=== PATIENT | male | born 1950 | race Caucasian/White ===

== ENCOUNTER 2024-04-17 12:21 | Emergency (ER) | payer MEDICARE, OTHER, SELFPAY ==
[2024-04-17 12:27] VITALS: BP 118/63
[2024-04-17 13:08] LABS: % Basophils 0.6 % (0-2); % Eosinophils 0.8 % (0-6); % Immature Granulocytes 0.1 % (0-0.5); % Lymphocytes 11.2 % (20.5-51.1); % Monocytes 6.3 % (1.7-9.3); Absolute Basophils 0.1 10^3/uL (0-0.2); Absolute Eosinophils 0.1 10^3/uL (0-0.7); Absolute Monocytes 0.5 10^3/uL (0.1-0.6); Absolute Neutrophils 6.9 10^3/uL (1.4-6.5); Hematocrit 45.7 % (39.0-52.0); Hemoglobin 15.6 g/dL (13.0-18.0); Mean Corp Hgb Conc. 34.1 g/dL (33.0-37.0); Mean Corpuscular Hgb 31.3 pg (27.0-31.0); Mean Corpuscular Volume 91.8 fL (80.0-94.0); Nucleated Red Blood Cells % 0 % (-); Platelet Count 193 10^3/uL (130-400); Red Blood Cell Count 4.98 10^6/uL (4.70-6.10); Red Cell Dist. Width 14.9 % (11.5-14.5); White Blood Cell Count 8.5 10^3/uL (4.8-10.8)
[2024-04-17 13:16] LABS: ALT (SGPT) 27 U/L (0-50); AST (SGOT) 27 U/L (17-59); Alkaline Phosphatase 101 U/L (38-126); Blood Urea Nitrogen 22 mg/dl (9-20); Calcium 9.5 mg/dl (8.4-10.2); Carbon Dioxide 28 mmol/L (22-30); Chloride 99 mmol/L (98-107); Glucose 112 mg/dl (70-99); Potassium 4.3 mmol/L (3.5-5.1); Sodium 138 mmol/L (135-145); Total Protein 7.7 g/dl (6.3-8.2); eGFR 49.47
--- NOTE | 2024-04-17 14:18 | ED.GENMED ---
History of Present Illness
<Rama Holley PA-C - Last Filed: 04/17/24 21:40>
General
Chief Complaint: Abdominal Pain
Source: patient
Exam Limitations: none
Time Seen by Provider: 04/17/24 13:58
Nursing documentation reviewed up to this point in time: agreed with
History of Present Illness
History of Present Illness:
43-year-old male with past medical history of CHF, hyperlipidemia, inguinal hernias, presents emergency department today with concerns of reducible umbilical hernia. Patient reports that the pain started last night. He states that he started
having noticing this hernia a few months ago and he was trying to get into be assessed by a general surgeon. He states that the past 2 days, he noticed that the hernia would not reduce. He denies any fevers or chills, denies any nausea or
vomiting. He tried to reduce it himself and could not get it back in. He does take Eliquis and his last dose was this morning around 4 AM. His last meal was last night.
Review of Systems
<Rama Holley PA-C - Last Filed: 04/17/24 21:40>
Review of Systems
All Other Systems: ROS reviewed and negative except as documented in HPI and ROS
Phy Exam
<Rama Holley PA-C - Last Filed: 04/17/24 21:40>
Physical Exam
Physical Exam:
General: Patient is well appearing and in no acute distress; non-toxic
Skin: Warm and dry, no rashes or lesions
Head: Normocephalic, atraumatic
Eyes: Sclera non-icteric. EOMs intact.
Cardiac: Regular rate
Peripheral Vascular: No lower extremity swelling or edema
Pulm: Normal respiratory effort
Abdomen: Abdominal tenderness to palpation noted diffusely, tender umbilical hernia noted, irreducible by me, reduced by Dr. Weinberg
Neuro: CN II-XII intact, no focal neurologic deficits.
Psychiatric: Appropriate mood and affect.
Course
<Rama Holley PA-C - Last Filed: 04/17/24 21:40>
Orders/Labs/Results
Orders:
Orders
04/17/24 12:43
Complete Blood Count/With Diff Urgent
Comprehensive Metabolic Panel Urgent
Abnormal Lab Results
04/17/24
12:43
MCH 31.3 H pg
(27.0-31.0)
RDW 14.9 H %
(11.5-14.5)
Absolute Neuts (auto) 6.9 H 10^3/uL
(1.4-6.5)
Absolute Lymphs (auto) 1.0 L 10^3/uL
(1.2-3.4)
Neutrophils % 81.0 H %
(42.2-75.2)
Lymphocytes % 11.2 L %
(20.5-51.1)
BUN 22 H mg/dl
(9-20)
Creatinine 1.5 H mg/dL
(0.7-1.3)
Glucose 112 H mg/dl
(70-99)
04/17/24 12:43
04/17/24 12:43
Vital Signs
Initial and Last Documented VS:
Initial Vital Signs
Temp Pulse Resp BP Pulse Ox
97.5 F 54 16 118/63 97
04/17/24 12:27 04/17/24 12:27 04/17/24 12:27 04/17/24 12:27 04/17/24 12:27
Last Documented Vital Signs
Temp Pulse Resp BP Pulse Ox
97.5 F 54 16 118/63 97
04/17/24 12:27 04/17/24 12:27 04/17/24 12:27 04/17/24 12:27 04/17/24 12:27
<Erich Weinberg DO - Last Filed: 04/17/24 14:33>
Orders/Labs/Results
Orders:
Orders
04/17/24 12:43
Complete Blood Count/With Diff Urgent
Comprehensive Metabolic Panel Urgent
Abnormal Lab Results
04/17/24
12:43
MCH 31.3 H pg
(27.0-31.0)
RDW 14.9 H %
(11.5-14.5)
Absolute Neuts (auto) 6.9 H 10^3/uL
(1.4-6.5)
Absolute Lymphs (auto) 1.0 L 10^3/uL
(1.2-3.4)
Neutrophils % 81.0 H %
(42.2-75.2)
Lymphocytes % 11.2 L %
(20.5-51.1)
BUN 22 H mg/dl
(9-20)
Creatinine 1.5 H mg/dL
(0.7-1.3)
Glucose 112 H mg/dl
(70-99)
04/17/24 12:43
04/17/24 12:43
Vital Signs
Initial and Last Documented VS:
Initial Vital Signs
Temp Pulse Resp BP Pulse Ox
97.5 F 54 16 118/63 97
04/17/24 12:27 04/17/24 12:27 04/17/24 12:27 04/17/24 12:27 04/17/24 12:27
Last Documented Vital Signs
Temp Pulse Resp BP Pulse Ox
97.5 F 54 16 118/63 97
04/17/24 12:27 04/17/24 12:27 04/17/24 12:27 04/17/24 12:27 04/17/24 12:27
<Rama Holley PA-C - Last Filed: 04/17/24 21:40>
MDM/Problems Addressed
Differential Diagnosis Includes:
incarcerated hernia, umbilical surgical hernia, IBS, abdominal wall strai
MDM/Problems Addressed:
73-year-old male with a past medical history of umbilical hernia presents emergency department today with concerns of abdominal pain. Patient reports that his umbilical hernia will not reduce. On physical exam, he is well-appearing no acute
distress he is afebrile he does have a umbilical hernia. I did attempt to reduce this myself. I did notify my attending was able to successfully reduce the hernia. Patient was observed emergency department for some time I did have him ambulate
around the room and during he did go back in and out on its own and is no longer stuck. C BC unremarkable. CMP reveals slightly elevated creatinine no prior to compare. Patient stable for discharge. Stressed follow-up with general surgery.
Chronic conditions affecting care:
Cad, hlp, sleep apnea
<Rama Holley PA-C - Last Filed: 04/17/24 21:40>
*Pulse Oximetry
Patient hypoxic: no
*Critical Care Note
Total Time (30-74mins, 75-104mins- exclusive of procedures): Not Applicable
Data Reviewed
Review of Other/Old Records Reveals: Records (no previous ER physician documentation to review ) and Discharge Summary (no discharge summaries to review )
Source: patient and records
<Rama Holley PA-C - Last Filed: 04/17/24 21:40>
Patient Management
Escalation/DeEscalation of care consider admission/obs:
case reviewed with my attending
admit not indicated
patient stable for discharge
ED Attending Note
<Rama Holley PA-C - Last Filed: 04/17/24 21:40>
-
Portions of this chart may have been created with voice recognition software.� Occasional wrong word or��sound alike� substitutions may have occurred due to the inherent limitations of voice recognition software.
<Erich Weinberg, DO - Last Filed: 04/17/24 14:33>
ED Attending Note
Patient seen and examined by attending physician: Yes
I performed the substantive portion of visit, reviewed & personally made and approve the management plan that is documented in note by myself or CHELSEA.: Yes
Discharge Plan
Departure
Patient Disposition: Home (Routine Discharge)
Date of Disposition: 04/17/24
Time of Disposition: 15:18
Patient with high blood pressure during this ER visit?: No
Condition: Good
Discharge Problem:
Umbilical hernia
Instructions: Abdominal wall hernias, Abdominal Pain
Referrals:
Jose Antonio Liz MD [Family Provider] -
Chad Khan MD [Active] - Call in 1-3 days for appt
Activity Restrictions/Additional Instructions:
Please call Dr. Khan's office first thing Friday morning to schedule an appointment.
PLEASE RETURN TO THE ER SHOULD YOU DEVELOP FEVERS OR CHILLS, NAUSEA AND VOMITING, CHEST PAIN, SHORTNESS OF BREATH, IRREDUCIBLE HERNIA, OR ANY OTHER SIGNS OR SYMPTOMS CONCERNING TO YOU.
Interventions
Interventions:
*Risk Screen - Suicide Last Done: 04/17/24 12:27
*General Assessment Last Done: 04/17/24 12:27
*Neglect/Abuse Screening Last Done: 04/17/24 12:27
*ED COVID-19 Vaccine History Last Done: 04/17/24 12:27
*Nursing Disposition Last Done: 04/17/24 15:42
[facility] Assessment Last Done: 04/17/24 15:27
Discharge Date and Time
Discharge Date/Time: 04/17/24 15:43
Print Language: TURKISH
== END 2024-04-17 15:43 | disposition home or self-care (01) ==
LOC: EMR 12:21
PROVIDERS: Emergency Medicine; EMERGENCY PHYSICIAN Emergency Medicine; FAMILY PHYSICIAN Internal Medicine Pulmonary Disease
DX: K42.9 Umbilical hernia without obstruction or gangrene (principal); E78.5 Hyperlipidemia, unspecified; I50.9 Heart failure, unspecified; I25.10 Atherosclerotic heart disease of native coronary artery without angina pectoris; G47.30 Sleep apnea, unspecified
CPT/HCPCS: 99283; 80053; 85025